=== PATIENT | male | born 1965 | race Caucasian/White ===

== ENCOUNTER 2023-09-09 18:37 | Emergency (ER) | payer BC ==
[~2023-09-09] VITALS: Ht 205.7 cm; Wt 111.1 kg
[2023-09-09 18:40] VITALS: TEMP 96.9
[2023-09-09] MEDS ORDERED: LISI10TA22 PO (18:50)
[2023-09-09] MEDS ORDERED: LEVO175T2 PO (18:50)
[2023-09-09] MEDS ORDERED: VITACAP8 PO (18:50)
[2023-09-09] MEDS ORDERED: DULO1CAP6 PO (18:50)
[2023-09-09] MEDS ORDERED: LIPI20TA PO (18:50)
[2023-09-09] MEDS ORDERED: GABA-282 PO (18:50)
[2023-09-09] MEDS ORDERED: ASPI81TA26 PO (18:50)
[2023-09-09] MEDS ORDERED: SEMA1PEN2 SQ (18:50)
[2023-09-09] MEDS ORDERED: naltrexone (18:50)
[2023-09-09 19:27] LABS: BASO # 0.1 10^3/uL (0.0-0.2); BASO % 0.8 % (0.0-1.0); EOS # 0.2 10^3/uL (0.0-0.5); EOS % 2.7 % (0.0-3.0); HEMATOCRIT 40.6 % (42.0-52.0); HEMOGLOBIN 14.5 g/dl (13.5-17.5); LYMPH # 1.8 10^3/uL (1.5-5.0); LYMPH % 25.1 % (24.0-44.0); MEAN CORPUSCULAR HEMOGLOBIN 33.9 pg (27.0-33.0); MEAN CORPUSCULAR HGB CONC 35.7 g/dl (32.0-36.5); MEAN CORPUSCULAR VOLUME 94.9 fl (80.0-96.0); MONO # 0.8 10^3/uL (0.0-0.8); MONO % 11.5 % (2.0-8.0); NEUTROPHILS # 4.4 10^3/uL (1.5-8.5); NEUTROPHILS % 59.5 % (36.0-66.0); PLATELET COUNT, AUTOMATED 279 10^3/uL (150-450); RED BLOOD COUNT 4.28 10^6/uL (4.30-6.10); WHITE BLOOD COUNT 7.3 10^3/uL (4.0-10.0)
[2023-09-09 19:53] LABS: ALKALINE PHOSPHATASE 101 U/L (46-116); ALT/SGPT 104 U/L (7.0-40); AST/SGOT 108 U/L (<34); BILIRUBIN,DIRECT 0.3 MG/DL (<0.4); BILIRUBIN,TOTAL 0.9 MG/DL (0.3-1.2); BLOOD UREA NITROGEN 14 MG/DL (9-23); CALCIUM LEVEL 9.4 MG/DL (8.5-10.1); CARBON DIOXIDE LEVEL 26 MMOL/L (20-31); CHLORIDE LEVEL 103 MMOL/L (98-107); CK-MB VALUE MASS 11.8 NG/ML (<3.6); CREATININE FOR GFR 1.09 MG/DL (0.70-1.30); GLOMERULAR FILTRATION RATE > 60.0 (>56); GLUCOSE, FASTING 130 MG/DL (60-100); POTASSIUM SERUM 4.1 MMOL/L (3.5-5.1); SODIUM LEVEL 136 MMOL/L (136-145); TOTAL PROTEIN 6.8 G/DL (5.7-8.2)
[2023-09-09 19:55] LABS: FREE T4 1.05 NG/DL (0.89-1.76); THYROID STIMULATING HORMONE 1.238 uIU/ML (0.55-4.78)
[2023-09-09 20:08] LABS: CPK CREATINE PHOSPHOKINASE 1739 U/L (46-171); MB/CK RELATIVE INDEX 0.67 (< OR =4)
[2023-09-09] MEDS ORDERED: ISOVUE-370 76% 100ML VIAL As Ordered ONE (20:28)
[2023-09-09] MEDS: NS 500 ML IV ONE (21:04)
[2023-09-09 22:00] VITALS: O2SAT 98
[2023-09-09] MEDS ORDERED: METO10TA2 PO (22:11)
[2023-09-09 22:15] VITALS: BP 121/63
[2023-09-09] MEDS: METOCLOPRAMIDE 10MG TAB PO ONE (22:20)
== END 2023-09-09 22:49 | disposition home or self-care (01) ==
LOC: M ED 18:37
DX: K31.84 Gastroparesis (principal); E11.9 Type 2 diabetes mellitus without complications; I10 Essential (primary) hypertension; E78.5 Hyperlipidemia, unspecified; F32.A Depression, unspecified; Z88.5 Allergy status to narcotic agent
CPT/HCPCS: 71046; 74177; 80048; 80076; 82550; 82553; 83880; 84439; 84443; 84484; 85025; 85379; 93005; 93041; 94760; 96360; 96361; 99285; Q9967